=== PATIENT | male | born 1960 | race Caucasian/White ===

== ENCOUNTER 2016-08-20 16:40 | Inpatient (IN) | payer SELFPAY ==
[~2016-08-20] VITALS: Ht 179.1 cm; Wt 149.5 kg
--- NOTE | ~2016-08-20 | ENPV ---
Vascular Lower Extremities DVT Study Procedure Demographics Patient Name WILLIAM LOPEZ Date of Study 08/23/2016 Patient Number [id number] Gender Male Date of 1960 Age 55 Visit Number [id number] Height 70 Accession Number [id number] Weight 326.29 Referring Manuel Peters Interpreting Amando Gaviria MD Physician Physician Physician Ordering Manuel Human Performance Consultant Physician Lorraine GLORIA Oyster Worker Lonnie Torres Conclusions Summary No evidence of deep vein thrombosis or superficial thrombophlebitis in the lower extremities bilaterally . Patient has amputation of lower right extremity. Left calf veins technically difficult to image. IMPRESSION NEGATIVE FOR DVT Procedure Type of Study: Veins:Lower Extremities DVT Study, Venous Duplex Lower Extremity Bilateral. Indications for Study:Swelling of Limb. Patient Status:Routine. Study Location:Inpatient Portable. Technical Quality:Adequate visualization. Risk Factors - The patient's risk factor(s) include: insulin-treated diabetes mellitus, dyslipidemia, obesity and treated arterial hypertension. - The patient has a former tobacco history. Velocities are measured in cm/s ; Diameters are measured in cm Right Lower Extremities DVT Study Measurements Right 2D and Doppler Measurements + + + + +------+------+ + !Location !Visualized!Compressibility!Thrombosis!Signal!Reflux!Reflux ! ! ! ! ! ! ! !(sec) ! + + + + +------+------+ + !GSV Thigh !Yes !Yes !None !Phasic! ! ! + + + + +------+------+ + !Common !Yes !Yes !None !Phasic! ! ! !Femoral ! ! ! ! ! ! ! + + + + +------+------+ + !Prox !Yes !Yes !None !Phasic! ! ! !Femoral ! ! ! ! ! ! ! + + + + +------+------+ + !Mid Femoral!Yes !Yes !None !Phasic! ! ! + + + + +------+------+ + Left Lower Extremities DVT Study Measurements Left 2D and Doppler Measurements + + + + +------+------+ + !Location !Visualized!Compressibility!Thrombosis!Signal!Reflux!Reflux ! ! ! ! ! ! ! !(sec) ! + + + + +------+------+ + !GSV Thigh !Yes !Yes !None !Phasic! ! ! + + + + +------+------+ + !Common !Yes !Yes !None !Phasic! ! ! !Femoral ! ! ! ! ! ! ! + + + + +------+------+ + !Prox !Yes !Yes !None !Phasic! ! ! !Femoral ! ! ! ! ! ! ! + + + + +------+------+ + !Mid Femoral!Yes !Yes !None !Phasic! ! ! + + + + +------+------+ + !Dist !Yes !Yes !None !Phasic! ! ! !Femoral ! ! ! ! ! ! ! + + + + +------+------+ + !Popliteal !Yes !Yes !None !Phasic! ! ! + + + + +------+------+ + !PTV !Yes ! !None !Phasic! ! ! + + + + +------+------+ + !Peroneal !Yes !Yes !None !Phasic! ! ! + + + + +------+------+ + Signature dtt: Colin Goel dtd: 08/23/16 1006 Physician Self Edit
--- NOTE | ~2016-08-20 | PUL ---
PATIENT'S NAME: WILLIAM LOPEZ [facility] AGE: 55 Y [address] ROOM: [address] [address] LOCATION: GPCU ADMIT DATE: 08/20/2016 Pulmonary DISCHARGE DATE: 08/23/2016 FAMILY PHYSICIAN: Sergio Pritchard MD ATTENDING PHYSICIAN: Sergio Pritchard NAME OF PROCEDURE: Overnight Pulse Oximetry DATE OF PROCEDURE: August 22 to August 23, 2016 REASON FOR EXAM: Nocturnal hypoxemia RESULTS: The test was performed on room air. The recording time and total valid sampling time were 6 hours, 16 minutes and 44 seconds. The highest pulse was 84, lowest pulse was 57, with a mean pulse of 71. The highest SpO2 was 95%, lowest SpO2 was 64%, with a mean SpO2 of 88.4%. The patient spent 2 hours, 14 minutes, and 20 seconds with SpO2 less than 89% of the total sleep time, representing 35.7% of the total sleep time. The desaturation event index was elevated at 18.6. PHYSICIAN INTERPRETATION: The patient has evidence of significant nocturnal hypoxia and would qualify for supplemental oxygen as per Medicare criteria. However because of his significant nocturnal hypoxia with an elevated desaturation event index a sleep study is recommended at this time. MD MIGUEL SHETH/larry /[id number] dtt: 08/25/16 1542 , HAMLET GUERRERO dtd: 08/25/16 1203
--- NOTE | ~2016-08-20 | DS ---
PATIENT'S NAME: WILLIAM LOPEZ [facility] AGE: 55 Y [address] ROOM: [address] [place], [place] [address] LOCATION: GPCU ADMIT DATE: 08/20/2016 Discharge Summary DISCHARGE DATE: 08/23/2016 FAMILY PHYSICIAN: Lizeth Pritchard MD ATTENDING PHYSICIAN: Lizeth Pritchard FINAL DIAGNOSES: 1. Chest pain. 2. Chronic obstructive pulmonary disease. 3. Left ventricular hypertrophy with EF of 60%. 4. Type 2 diabetes mellitus, insulin dependent. 5. Morbid obesity. 6. Hypertension with chronic kidney disease stage 3. 7. Chronic kidney disease stage 3. 8. Coronary artery disease. 9. Hyperlipidemia. 10. Obstructive sleep apnea. REASON FOR ADMIT: This 55-year-old male presented to the clinic on the date of admit with complaints of chest pain. He was found to have an elevated troponin and was subsequently admitted. Please see the dictated H and P for full details. HOSPITAL COURSE: The patient was subsequently ruled out. He did have elevated enzymes at the hospital as well. He ended up undergoing a stress test, though that was completely normal with great squeezes. EF was 60% with some LVH noted on his echo. Dr. Patel did not feel like heart catheterization is mandated. He still was having some issues with hypoxia, so we ended up doing a V/Q scan, which was negative for any pulmonary embolic disease. We did that because of D-dimer. He subsequently was able to titrate off oxygen. We did do an overnight trend oximetry, which showed very poor control of his hypoxia. He spent 52% on the night with O2 saturation above 90%, 44% between 80 and 90, 3.9% between 70 and 80, and 0.3% between 60 and 70. It was felt that he needed another sleep study to further titrate his oxygen levels. We will work on getting that set up as well. At this point though, he has been deemed ready for discharge. He is clinically stable. DISCHARGE MEDICATIONS: 1. Aspirin 325 one a day. 2. Lipitor 10 mg one p.o. q.h.s. 3. Calcium plus D one a day. 4. Carvedilol 25 mg b.i.d. 5. Insulin 15 units in the morning, 20 units at noon, and 30 units at nighttime. He is on 115 units of insulin once a day with Lantus. 6. Levothyroxine 0.175 daily. PATIENT'S NAME: WILLIAM LOPEZ [facility] AGE: 55 Y [address] ROOM: [address] [place], [place] [address] [facility] ADMIT DATE: 08/20/2016 Discharge Summary DISCHARGE DATE: 08/23/2016 FAMILY PHYSICIAN: Lizeth Pritchard MD ATTENDING PHYSICIAN: Lizeth Pritchard 7. Benazepril 40 mg daily. 8. Metformin 1000 mg b.i.d. 9. Multivitamin one a day. 10. Omeprazole 20 mg daily. 11. Amaryl 4 mg b.i.d. 12. Tylenol p.r.n. 13. Amlodipine 5 mg q.h.s. FOLLOWUP: He will follow up with Dr. Patel in 1 week and with myself in 2 weeks. He voiced understanding of that plan. LIZETH PRITCHARD MD TAB/modl /[id number] d: 08/24/16 0253 t: 09/02/16 1639, DISCHARGE SUMMARY
--- NOTE | ~2016-08-20 | CON ---
PATIENT'S NAME: WILLIAM LOPEZ [facility] AGE: 55 Y [address] ROOM: [address] [place], [place] [address] LOCATION: GPCU ADMIT DATE: 08/20/2016 Consultation DISCHARGE DATE: FAMILY PHYSICIAN: Sergio Pritchard MD ATTENDING PHYSICIAN: Sergio Pritchard REFERRING PHYSICIAN: Lorraine Jackson MD HISTORY OF PRESENT ILLNESS: Dear Dr. Pritchard: Thank you for asking me to see Mr. Lopez, who is a 55-year-old male patient, hospitalized with chest pains and shortness of breath of about 7 days' duration. He is currently pain free, and he apparently has had elevated troponins consistent with a oxs-ZB-olwwfmr elevation AL, which is the main reason for me seeing him. The patient has a history of coronary artery disease, and had apparently a stent placed in 2005. He had been doing okay up until about seven days ago. Normally, he ambulates with a prosthesis on his right lower extremity, which he wears for a right below-knee amputation. He wears the usual shoes on his legs, even though he has had some of the toes amputated. He is not on any structured exercise program. He does get around at his own pace at work and home, which is about the most he does. Generally, he has not had any chest discomfort or pressure up until about 7 days ago when he noticed about five minutes' worth of significant chest pressure, which he calls 4 on a scale of 1 to 10. This occurred when he walked to his car in the morning. It resolved and he was quite short of breath. Since then, he has been more short of breath than usual. Compared to about a month ago, he is clearly at least 50% worse as far as the breathing is concerned. Since that initial episode of chest pressure, he has had it few other times lasting about two to three minutes each time. He has been a functional class 3, with no paroxysmal nocturnal dyspnea or orthopnea. After he started having this problem, he started using his CPAP, which seemed to be helping him according to the patient. He denies any lightheadedness, syncope, presyncope, or dizziness. He has some palpitations and some ankle swelling. The patient has history of type 2 diabetes with some possible nephropathy, retinopathy, peripheral vascular disease, and right below-knee amputation and some toes amputated on the left side, and possibly nephropathy as well. He has CKD. He has morbid obesity. He quit smoking 25 years ago. There is also history of hypertension, type 2 diabetes, and elevated cholesterol. There is significant family history of premature coronary artery disease in his Dad, who may have had his first coronary event in his 50s. He denies AL or angina or nitroglycerin use. There is no history of rheumatic fever, heart murmur, heart failure, dilated or enlarged heart, or any diagnosed cardiac arrhythmias. PATIENT'S NAME: WILLIAM LOPEZ [facility] AGE: 55 Y [address] ROOM: [place] [address] [facility] ADMIT DATE: 08/20/2016 Consultation DISCHARGE DATE: FAMILY PHYSICIAN: Sergio Pritchard MD ATTENDING PHYSICIAN: Sergio Pritchard MEDICATIONS: His current list of medications are 1. Atorvastatin 10 mg a day. 2. Benazepril 40 mg once a day. 3. Calcium and vitamin. 4. Carvedilol 25 mg twice a day. 5. Farxiga 5 mg once a day. 6. Glimepiride 4 mg two times a day. 7. Humalog insulin. 8. Lantus insulin. 9. Metformin 1 g p.o. twice a day. 10. Multivitamin. 11. Omeprazole 10 mg a day. 12. Synthroid 175 mcg a day. ALLERGIES: NO KNOWN DRUG ALLERGIES. PAST MEDICAL HISTORY: 1. Amputation. 2. Cataract surgery. 3. Foot surgery. 4. History of cyst removed from his stomach. 5. History of diabetic foot ulcer. 6. CKD. 7. Morbid obesity. 8. Microalbuminemia. 9. Non-compliance with medications. 10. History of osteomyelitis in lower leg on the right, status post amputation. 11. Sleep apnea. SOCIAL HISTORY: The patient is single. He denies abusing alcohol or recreational drugs. His appetite has been stable. Weight is stable. Sleep is poor. FAMILY HISTORY: Positive for premature coronary artery disease in his Dad. REVIEW OF SYSTEMS: A 12-point review of systems revealed the following positives. 1. Fatigue. 2. Migraines. 3. Corrective lenses. PATIENT'S NAME: WILLIAM LOPEZ [facility] AGE: 55 Y [address] ROOM: [address] [address] LOCATION: GPCU ADMIT DATE: 08/20/2016 Consultation DISCHARGE DATE: FAMILY PHYSICIAN: Sergio Pritchard MD ATTENDING PHYSICIAN: Sergio Pritchard 4. Diabetic retinopathy. 5. Hypothyroidism. 6. History of heartburns. 7. History of polyps in his colon. 8. DJD. 9. The patient is a vasculopath. 10. CKD. 11. Below-knee amputation on the right. 12. Anxiety and depression. PHYSICAL EXAMINATION: VITAL SIGNS: On examination, his blood pressure was 170/80, heart rate is in the 60s and 70s and regular, respirations are 18, and afebrile. HEENT: Normal. NECK: Supple with no JVD, thyromegaly, lymphadenopathy, or carotid bruit. CARDIAC: PMI is not well located. First and second heart sounds are regular. There are no added sounds or murmurs. CHEST: Clear to auscultation. EXTREMITIES: Revealed no edema. He is again a right below-knee amputee. NEUROLOGICAL: Central nervous system overall appeared to be intact. ASSESSMENT AND PLAN: The patient seemed to have acute ischemic syndrome. We will rule him out for myocardial infarction, and then do a catheterization if he rules in and a stress test if he rules out. In the meantime, I would also get an echocardiogram as well. Again, I appreciate this opportunity to participate in the care of Mr. Lopez. MD FRANDY CRUZ/pollo /[id number] d: 08/21/16 0208 t: 08/24/16 1453, CONSULTATION REPORT
--- NOTE | ~2016-08-20 | ECHO ---
Transthoracic Echocardiography Report (TTE) Demographics Patient Name WILLIAM LOPEZ Date of Study 08/22/2016 Patient Number [id number] Visit Number [id number] Date of 1960 Room Number G6337 Gender Male Number Age 55 year(s) Referring Manuel Peters Practicing Dermatologist Mike Nick RVT, Physician MD JOSE Steiner MD Physician Interpreting Manuel Peters Roll Shop Supervisor Physician Supervising Ordering Manuel Peters MD/MLP Physician Nurse Stress Benefits Administrator Conclusions Contractility Score Summary Normal Left Ventricular contractility was noted. Summary Technically difficult exam. Definity used to better delineate endocardial borders. The estimated left ventricular ejection fraction is 60% with normal WM.Moderate concentric left ventricular hypertrophy except the septum reveals severe RUSTY without evidence of outflow tract obstruction.Normal LV internal dimensions. Mildly dilated right ventricle with normal function. The right atrium is mildly dilated. Dilated IVC with poor inspiratory collapse consistent with elevated RA pressure. Procedure Type of Study TTE procedure:2D Echocardiogram. Procedure Date Date: 08/22/2016 Start: 09:38 AM Study Location: Inpatient Portable Technical Quality: Fair due to body habitus. Indications:Chest pain. Appropriate Use Criteria: 8 Patient Status: Routine Contrast Medium: Definity. Amount - 3 ml Rhythm: NSR HR: 72 bpm BP: 140/65 mmHg M-Mode/2D Measurements LV Diastolic Dimension: 5.17 cm LV Systolic Dimension: 3.25 cm LV Septum Diastolic: 1.95 cm LV PW Diastolic: 1.49 cm AO Root Dimension: 3.4 cm Cardiac Output: 5.64 l/min AV Cusp Separation: 2.2 cm RV Diastolic Dimension: 3.82 cm LA volume: 44 ml LVOT: 2.2 cm RV Base: 3.6 cm LVOT VTI: 20.6 cm RV Mid: 4.18 cm LV Stroke volume: 78.27 ml TAPSE: 2.25 cm TDI-S': 11.7 cm/s Doppler Measurements AV Peak Velocity: 1.06 m/s MV Peak E-Wave: 1.37 m/s AV Peak Gradient: 4.49 mmHg MV Peak A-Wave: 0.98 m/s AV Mean Gradient: 3 mmHg MV E/A Ratio: 1.4 LVOT Peak Velocity: 0.8 m/s MV P1/2t: 63 msec TR Gradient:17.81 mmHg PV Peak Velocity: 1.22 m/s Estimated RAP:5 mmHg PV Peak Gradient: 5.95 mmHg Estimated RVSP: 23 mmHg Estimated PASP: 22.81 mmHg E' Septal Velocity: 0.06 m/s A' Septal Velocity: 0.11 m/s E' Lateral Velocity: 0.07 m/s A' Lateral Velocity: 0.13 m/s Findings Left Ventricle Moderate concentric left ventricular hypertrophy and severe RUSTY with normal EF,WM and internal dimension. Right Ventricle Mildly dilated right ventricle with normal function. Left Atrium Normal left atrial size. There is no evidence of patent foramen ovale or atrial septal defect by color Doppler. Right Atrium The right atrium is mildly dilated. Dilated IVC with poor inspiratory collapse consistent with elevated RA pressure. Mitral Valve Normal mitral valve structure and function. Aortic Valve Normal aortic valve structure and function. Tricuspid Valve Normal tricuspid valve structure and function. Trivial tricuspid regurgitation by color Doppler. Pulmonic Valve Normal pulmonic valve structure and function. Pericardial Effusion No evidence of pericardial effusion. Miscellaneous Visualized portions of the aortic root and ascending aorta appear normal in size. Pleural Effusion No evidence of pleural effusion. Contractility Score LV regional wall motion:(0-Non visualized 1-Normal 2-Hypokinesis 3-Akinesis 4-Dyskinesis 5-Aneurysm) Signature dtt: Lorraine Jackson dtd: 08/22/16 0938 Physician Self Edit
--- NOTE | ~2016-08-20 | ESTC ---
Cardiac Perfusion Imaging Demographics Patient Name JOHN Vargas Gender Male Patient Number [id number] Race Visit Number [id number] Ethnicity Corporate ID Room Number G6337 Accession Number [id number] Height 70 inches Date of 1960 Weight 326.3 pounds Interpreting Manuel Peters Date of study 08/21/2016 Physician Supervising /GILBERTP Manuel AMEZQUITA Technologist Kalee Coats MD Ordering Physician Francheska Steiner MD Stress Matt Matt educational technician RVT Stress ECG Reading Manuel Peters Nurse Taylor Nuno Physician RN The procedure was explained in detail to the patient. Risks, complications and alternative treatments were reviewed. Written consent was obtained. Medications Reviewed with Patient prior to Procedure. Procedure Procedure Type: Nuclear Stress Test:Pharmacological, Cardiolite Stress Test Procedure Start time: 08/21/2016 10:05 Indications: Chest pain and Shortness of breath. Risk Factors The patient risk factors include:prior PCI;peripheral arterial disease, obesity, former tobacco use, treated hypercholesterolemia, treated hypertension, family history of premature CAD, insulin treated diabetes mellitus, dyslipidemia and prior heart failure . Conclusions Summary No TID. Enlarged LV. No perfusion abnormalities. Normal EF and WM. Stress Protocols Resting ECG RSR. Pre-stress physical exam: Un changed. Predicted HR: 166 bpm ECG Findings No ECG changes suggestive of ischemia. Arrhythmias No rhythm abnormality. Symptoms SOB. Nausea. Stress Interpretation Lexiscan cardiolite study. SOB and nausea. Normal HR response. Hypertensive BP response. No EKG changes of ischemia. No arrythmias. Imaging Results Applied corrections - Motion correction applied High risk findings Summed scores - Summed stress score: 3 - Summed rest score: 8 - Summed difference score: -5 Stress ejection Ejection fraction:62 % EDV :225 ml ESV :85 ml Stroke volume :140 ml LV mass :225 gr LV size:Enlarged LV Normal LV function Imaging Protocols Rest Stress Isotope:Tc99m Sestamibi IV Isotope: Tc99m Sestamibi IV Isotope dose:16.35 mCi Isotope dose:49.36 mCi Date:08/21/2016 08:55 Date:08/28/2016 10:47 Technique: SPECT Technique: Gated Supine SPECT Supine IV remains in place after procedure. Scan Time:45-60 minutes post injection Procedure Medications - Regadenoson (Lexiscan) 0.4 mg IV over 10-15 sec. I.V. 0.4 mg. Medical History Admission Data Admission date: 08/20/2016 Admission Time: 16:40 Hospital Status: Inpatient. Signatures dtt: Lorraine Jackson dtd: 08/21/16 1005 Physician Self Edit
[2016-08-20] MEDS ORDERED: AMARYL4 MG PO (17:31)
[2016-08-20] MEDS ORDERED: LIPITOR40 MG PO (17:31)
[2016-08-20] MEDS ORDERED: GLUCOPHAGE1000 MG PO (17:31)
[2016-08-20] MEDS ORDERED: BENAZEPRIL HCL40 MG PO (17:31)
[2016-08-20] MEDS ORDERED: LANTUS (IN100 UNIT/M SUB-Q (17:32)
[2016-08-20] MEDS ORDERED: LEVOTHROID(SY175 MCG PO (17:32)
[2016-08-20] MEDS ORDERED: HUMALOG100 UNIT/1 SUB-Q ×3 (17:33→17:34)
[2016-08-20] MEDS ORDERED: THERAGRAN-M1 TAB PO (17:34)
[2016-08-20] MEDS ORDERED: ASPIRIN325 MG PO (17:34)
[2016-08-20] MEDS ORDERED: ADVIL200 MG PO (17:35)
[2016-08-20] MEDS ORDERED: CALCIUM + D3 E1 EACH PO (17:35)
[2016-08-20] MEDS ORDERED: TYLENOL EXTRA500 MG PO (17:35)
[2016-08-20] MEDS ORDERED: PRILOSEC20 MG PO (17:41)
[2016-08-20 18:16] LABS: BILIRUBIN URINE NEGATIVE (NEGATIVE); BLOOD URINE 25 /UL (NEGATIVE); COLOR URINE YELLOW (YELLOW); GLUCOSE URINE NEGATIVE (NEGATIVE); KETONE URINE NEGATIVE (NEGATIVE); LEUKOCYTES URINE 500 /UL (NEGATIVE); NITRITE URINE NEGATIVE (NEGATIVE); PROTEIN URINE 500 mg/dL (NEGATIVE); SPEC GRAVITY URINE 1.015 (1.003-1.035); TURBIDITY URINE 2+ (CLEAR); UROBILINOGEN URINE NORMAL (NORMAL)
--- NOTE | 2016-08-20 18:22 | NUR ---
Patient went to [facility] today reporting that he has had chest discomfort and dyspnea, which started 6 days ago. It was noted his troponin was elevated in the clinic. Patient direct admit to PCU at 1655. Vital signs: BP 178/84, HR 77, O2 saturation 88% on room air, afebrile, RR 22, and denies pain (including chest pain). Applied 2L of oxygen per ACS protocol. Lung sounds clear/diminished. Patient states he still feels short of breath, although no chest pain present. States the last time he felt lightheaded/dizzy was on Tuesday, but never had a syncopal episode. Bowel sounds present with last bowel movement on admission. Urine cloudy and yellow. UA sent. Consulted cardiology and started on ACS protocol. Blood sugar 84 on admit. Patient has known diabetes. Other medical history includes: Right BKA with prothesis, PVD, HTN, prolonged QT, Stents, breathing difficulty, CPAP at night, gastritis, GERD, ulcers, renal disease, ETOH, depression, anemia, hypothyriodism. Plan to monitor cardiac enzymes, EKG, and cardiology to see. Estrella CARRINGTON 08/20/16
[2016-08-20 18:25] LABS: WBC URINE PACKED FIELD #/HPF (NEGATIVE)
[2016-08-20 18:26] LABS: BACTERIA URINE MANY (NEGATIVE)
[2016-08-20 19:13] LABS: BASOPHIL % 0.2 %; EOSINOPHIL # 0.3 K/uL (0.0-0.5); HEMATOCRIT 35.9 % (37.0-53.0); HEMOGLOBIN 10.7 g/dL (12.0-17.0); IMMATURE GRANULOCYTE % 0.5 %; LYMPHOCYTE # 1.3 K/uL (0.8-4.0); LYMPHOCYTE % 14.8 %; MCH 24.7 pg (27.0-34.0); MCHC 29.8 gm/dL (32.0-36.5); MCV 82.9 fl (83.0-98.0); MONOCYTE # 0.7 K/uL (0.0-1.0); MPV 8.2 fl (9.4-12.4); NEUTROPHIL # (ANC) 6.2 K/uL (1.4-9.0); NEUTROPHIL % 73.5 %; NRBC % 0 /100WBC (0-0.00); PLATELET COUNT 192 K/uL (150-450); RBC 4.33 M/uL (4.00-6.00); RDW-CV 16.1 % (11.9-14.6); WBC 8.4 K/uL (4.0-11.0)
[2016-08-20 19:22] LABS: INR - (THERAPEUTIC) 1.01 (0.92-1.07); PROTIME 10.6 SECONDS (9.8-11.4); PTT 28 SECONDS (25-32)
[2016-08-20 19:33] LABS: ANION GAP 11.3 (10.0-19.0); CALCIUM 8.3 mg/dL (8.5-10.5); CREATININE 1.7 mg/dL (0.6-1.3); MAGNESIUM 1.6 mg/dL (1.8-2.6); POTASSIUM 5.3 mMol/L (3.7-5.1); TOTAL BILIRUBIN 0.5 mg/dL (0.0-1.5)
--- NOTE | 2016-08-21 05:32 | NUR ---
Significant Event: A/0 X 3. SBP'S HAVE BEEN IN THE 170'S, HR 70'S, AFEBRILE. HEPARIN AT 1000 UNITS/HR, NEXT PTT-HP 0530. LAST TROPONIN 0.41, ALL OTHER CARDIAC ENZYMES NEGATIVE. 02 AT 3L, HAS HOME CPAP, HAD TO RUN 5L BLEED INTO CPAP TO MAINTAIN 02, HE SLEEPS ON HIS SIDE. SOON HE TURNS TO HIS BACK OR WAKES 02 JUMPS UP QUICKLY. NPO SINCE MIDNIGHT FOR KAROLINE THIS AM. Follow up:
[2016-08-21] MEDS ORDERED: COREG25 MG PO (06:46)
[2016-08-21 14:04] LABS: CPK 73 IU/L (35-332)
--- NOTE | 2016-08-21 16:16 | NUR ---
Significant Event: Patient A/O x 3. Up with 1A. VSS on 3L O2. Unable to wean patient to room air (normally on room air during the day), but has been sleeping frequently throughout the day. Lexiscan this A.M. Results still pending. Denies chest pain or shortness of breath. L)wrist PIV with heparin infusing. 2L NS complete. Denies pain throughout the day. ACHS accu checks without sliding scale. Gets his home dose of schedule insulin. Follow up: Continue as per plan of care. Attempt to wean O2. Awaiting lexiscan results.
--- NOTE | 2016-08-22 04:38 | NUR ---
Significant Event:A&O. REMAINS ON 3L NC AND 3L W/OWN CPAP AT NIGHT. DENIES PAIN.HEPARIN GTT PER ACS PROTOCOL. DANGLED AT BEDSIDE. BP HIGH 176/74. Follow up: CONT TO MONITOR, AM LABS
[2016-08-22 06:49] LABS: CPK 54 IU/L (35-332)
--- NOTE | 2016-08-22 17:13 | NUR ---
Significant Events: Patient is A&Ox3 and pleasant. Patient is a stand-by assist with a cane and prosthesis to the right lower leg. Vital signs: HR 60-80's, SBP 120-190's. Patient is on 2L nasal cannula with clear lung sounds. Patient is up to commode with one BM today and 2049 in urine. Patient has scratches/redness to left lower abdomen, redness to right inner thigh, and venous staining/peeling to left lower leg. IV in right wrist with heparin running at 1900. Magnesium also started today and is running at 100 mls. Patient had chest x-ray this AM and is to have a duplex scan tomorrow. Continue per plan of care.
[2016-08-23 04:36] LABS: BASOPHIL % 0.3 %; EOSINOPHIL # 0.5 K/uL (0.0-0.5); EOSINOPHIL % 4.3 %; HEMATOCRIT 37.9 % (37.0-53.0); HEMOGLOBIN 11.5 g/dL (12.0-17.0); IMMATURE GRANULOCYTE # 0.1 K/uL (0.0-0.3); IMMATURE GRANULOCYTE % 0.6 %; LYMPHOCYTE # 1.4 K/uL (0.8-4.0); LYMPHOCYTE % 13.5 %; MCHC 30.3 gm/dL (32.0-36.5); MCV 82.4 fl (83.0-98.0); MONOCYTE % 9.4 %; MPV 8.4 fl (9.4-12.4); NEUTROPHIL # (ANC) 7.5 K/uL (1.4-9.0); NEUTROPHIL % 71.9 %; NRBC % 0 /100WBC (0-0.00); PLATELET COUNT 220 K/uL (150-450); RDW-CV 16.2 % (11.9-14.6); WBC 10.5 K/uL (4.0-11.0)
--- NOTE | 2016-08-23 04:55 | NUR ---
Significant Event: A&O. Weaned oxygen to 1L NC while awake. trend ox per RT this shift. Heparin gtt stopped per , VQ scan negative. 20mg IV lasix given once. Pt voids per urinal, no BM. Follow up:iftikhar LE duplex? cont w/plan of care
[2016-08-23 05:01] LABS: CALCIUM 8.5 mg/dL (8.5-10.5); CREATININE 1.5 mg/dL (0.6-1.3)
[2016-08-23 05:02] LABS: ANION GAP 11.8 (10.0-19.0); POTASSIUM 4.8 mMol/L (3.7-5.1)
--- NOTE | 2016-08-23 16:56 | NUR ---
Introduced self and care management services to patient. Lives in [place] with roommate. Gets to go home this evening, will call roommate for ride. Denies concerns about going home, denies needs. Does not have health insurance, does have financial assistance application, instructed him to fill that out and send it in to see what assistance he qualifies for and I called a referral to Madelin with [employer] to see if will qualify for Medicaid assistance.
[2016-08-23] MEDS ORDERED: NORVASC10 MG PO (17:29)
--- NOTE | 2016-08-23 17:48 | NUR ---
PATIENT HAS BEEN UP PERIODICALLY THROUGHOUT THE DAY ON HIS OWN TO GO TO THE BATHROOM. PATIENT VOIDED FOUR TIMES TODAY AND HAD NO BM. PATIENT TOOK A SHOWER THIS MORNING. PATIENT WAS NOT TREATED WITH INSULIN AT ALL TODAY, BS WAS WITHIN NORMAL RANGE PER MILD SLIDING SCALE. PATIENT HAD HIGH BP AT 1100 ASSESSMENT, 223/89, SO WE TREATED WITH NORVASC x1. PATIENT HAS IV IN LEFT HAND AND HAS HAD NO COMPLICATIONS WITH THAT. PATIENT STATED ONCE TODAY THAT HE FELT DIZZY WHEN HE STOOD UP TO GO TO THE BATHROOM. PATIENT IS CURRENTLY RESTING IN BED.
--- NOTE | 2016-08-23 18:47 | NUR ---
PATIENT GIVEN WRITTEN DISMISSAL INSTRUCTIONS INCLUDING NEW HOME MEDICATION LIST WITH INFORMATION ON NEW MEDS, PRESCRIPTIONS, FOLLOW-UP APPOINTMENTS WITH CARDIOLOGY, PCP, AND SLEEP STUDY SCHEDULED FOR September. DIET AND ACTIVITY RESTRICTIONS ALSO DISCUSED WITH RN. PATIENT STATES UNDERSTANDING OF INFORMATION DISCUSSED WITH RN. PIV REMOVED FROM L) WRIST WITH GAUZE AND COBAN APPLIED. TELEMETRY DC'D AND PATIENT DRESSED IN OWN CLOTHING. TAKEN TO FRONT OF [facility] VIA WHEELCHAIR AT 1845 ACCOMPANIED BY RN, ROOMMATE, AND BELONGINGS.
== END 2016-08-23 18:45 | disposition disaster alternative care site (69) | DRG 303 ==
LOC: GPCU 16:40
PROVIDERS: Internal Medicine Interventional Cardiology; ADMIT Family Medicine
DX: I25.110 Atherosclerotic heart disease of native coronary artery with unstable angina pectoris (principal); E11.22 Type 2 diabetes mellitus with diabetic chronic kidney disease; Z68.41 Body mass index [BMI] 40.0-44.9, adult; N18.3 Chronic kidney disease, stage 3 (moderate); M86.8X6 Other osteomyelitis, lower leg; E66.01 Morbid (severe) obesity due to excess calories; I25.10 Atherosclerotic heart disease of native coronary artery without angina pectoris; E78.5 Hyperlipidemia, unspecified; G47.33 Obstructive sleep apnea (adult) (pediatric); J44.9 Chronic obstructive pulmonary disease, unspecified; I12.9 Hypertensive chronic kidney disease with stage 1 through stage 4 chronic kidney disease, or unspecified chronic kidney disease; Z91.19 Patient's noncompliance with other medical treatment and regimen; Z79.4 Long term (current) use of insulin; E03.9 Hypothyroidism, unspecified; Z89.511 Acquired absence of right leg below knee; F41.9 Anxiety disorder, unspecified; F32.9 Major depressive disorder, single episode, unspecified; Z86.010 Personal history of colon polyps
CPT/HCPCS: A9500; A9539; A9540; C8929; J0280; J1644; J1940; J2785; J3475; J7030; J7050; Q9957

== ENCOUNTER 2016-10-05 10:43 | Inpatient (IN) | payer SELFPAY ==
[~2016-10-05] VITALS: Ht 179.1 cm; Wt 148.1 kg
--- NOTE | ~2016-10-05 | CON ---
PATIENT'S NAME: WILLIAM LOPEZ [facility] AGE: 55 Y [address] ROOM: [id number] [place], [place] [address] LOCATION: GPCU ADMIT DATE: 10/05/2016 Consultation DISCHARGE DATE: FAMILY PHYSICIAN: Sergio Pritchard MD ATTENDING PHYSICIAN: Cheryl Gill DATE OF CONSULTATION: 10/06/2016 REFERRING PHYSICIAN: Lorraine Jackson MD Patient of Dr. Pritchard. HISTORY OF PRESENT ILLNESS: Dear Dr. Pritchard: Thank you for asking me to see Mr. Lopez, who is a 55-year-old male patient, who was hospitalized in July with chest pain and shortness of breath. He was found to have a normal ejection fraction with moderate concentric left ventricular hypertrophy except for the septum, which was severely hypotrophic without evidence of outflow tract obstruction. The LV internal dimension was normal. There was mildly dilated right ventricle and right atrium and evidence of increased right atrial pressures by echocardiogram. His cardiac stress test was essentially consistent with normal ejection fraction and wall motion with no perfusion abnormalities and enlarged left ventricle. There was no TID. He was discharged home on his home medication to be followed up as an outpatient. At that time, I did not think catheterization is necessary. Pulmonary embolic disease was excluded using a V/Q scan. His other comorbid conditions include morbid obesity, hypertension, CKD stage 3, hyperlipidemia, type 2 diabetes, obstructive sleep apnea, COPD, coronary artery disease status post PCI in 2005, recent history of a dip-KP-vkqaaej elevation [place] in July. The patient generally ambulates with prosthesis with right below-knee amputation. For the past 3 days, he has gotten progressively worse shortness of breath, which got a lot worse yesterday, and he decided to come in. He has not had any chest pain. Since he came in, he has had diuretics which seemed to improved his symptoms considerably. He has been in functional class III lately. There is no paroxysmal nocturnal dyspnea or orthopnea. There is no history of lightheadedness, syncope, presyncope, dizziness, or palpitation. He does have some ankle swelling. There is no recent change in his rhythm. A repeat V/Q scan has been negative. He did catch a cold and sinus drainage about 4 days ago. He also admits to increasing his salt intake lately and his hemoglobin is down from 11.5 to about 9.9 this time. PATIENT'S NAME: WILLIAM LOPEZ [facility] AGE: 55 Y [address] ROOM: [place] [address] LOCATION: GPCU ADMIT DATE: 10/05/2016 Consultation DISCHARGE DATE: FAMILY PHYSICIAN: Sergio Pritchard MD ATTENDING PHYSICIAN: Cheryl Gill He does have a history of coronary artery disease in his family with his dad having his first coronary event in his 50s and has a prior history of smoking, which he quit 25 years ago. He has peripheral vascular disease and had below- knee amputation on the right side. As far as the diabetes concerned, he has nephropathy and retinopathy as well. He has no history of rheumatic fever or heart murmur. However, he has history of congestive heart failure, dilated heart, but does not have any arrhythmias. MEDICATIONS: 1. Lipitor 40 mg a day. 2. Norvasc 10 mg a day. 3. Glimepiride 4 mg twice a day. 4. Aspirin 325 mg a day. 5. Carvedilol 25 b.i.d. 6. Multivitamin once a day. 7. Magnesium daily. 8. Prilosec 20 mg a day. 9. Lantus insulin. 10. Humalog insulin. ALLERGIES: MORPHINE. PAST MEDICAL HISTORY: 1. History of right below-knee amputation. 2. Cataract surgery. 3. Foot surgery. 4. Cyst removed from his stomach. 5. Diabetic foot ulcer. 6. Morbid obesity. 7. CKD. 8. Microalbuminuria. 9. Noncompliance with medications. 10. History of osteomyelitis before his amputation. 11. Sleep apnea. SOCIAL HISTORY: The patient is single. He denies abusing alcohol or recreational drugs. His appetite has been stable. Weight is stable. Sleep is poor. FAMILY HISTORY: Positive for premature coronary artery disease in his dad. REVIEW OF SYSTEMS: PATIENT'S NAME: WILLIAM LOPEZ [facility] AGE: 55 Y [address] ROOM: [place] [address] LOCATION: GPCU ADMIT DATE: 10/05/2016 Consultation DISCHARGE DATE: FAMILY PHYSICIAN: Sergio Pritchard MD ATTENDING PHYSICIAN: Bridget,Cheryl 12-point review of systems reveal: 1. Migraine headaches. 2. Hypothyroidism. 3. Heartburn. 4. History of polyps in his colon. 5. DJD. 6. Anxiety and depression. PHYSICAL EXAMINATION: VITAL SIGNS: On examination, his blood pressure is 151/60, heart rate is 70s and regular, respirations 20. Afebrile. Oxygen saturation is 93% on oxygen. HEENT: Normal. NECK: Supple with no JVD, thyromegaly, lymphadenopathy, or carotid bruit. CARDIAC: PMI is not well located. First and second heart sounds are distant. There are no added sounds or murmurs. CHEST: Clear to auscultation. ABDOMEN: Soft and obese. EXTREMITIES: Reveal trace to 1+ edema. CENTRAL NERVOUS SYSTEM: Overall intact. LABORATORY DATA: His troponins are negative so far. ASSESSMENT: A 55-year-old, male patient with hypertrophic cardiomyopathy with a normal ejection fraction with some asymmetric hypertrophy as well, who has history of congestive heart failure and history of coronary artery disease status post stent in 2006. His last stress test was negative. He has no significant valvular abnormalities He presents again with congestive heart failure symptoms. The precipitating factors in his case appears at least at this time to be noncompliance with salt restriction, hemoglobin dropped from 11.5-9.9 and sinus drainage and cold. RECOMMENDATION: We will check his Hemoccult, all his stools, and try and treat him with more diuretics until he is really free of any significant shortness of breath. I wonder if his kidney function improve, cardiac MRI study and/or left heart catheterization study may be helpful. Again, I appreciate this opportunity to participate in the care of Mr. Lopez. PATIENT'S NAME: WILLIAM LOPEZ [facility] AGE: 55 Y [address] ROOM: [place] [address] LOCATION: GPCU ADMIT DATE: 10/05/2016 Consultation DISCHARGE DATE: FAMILY PHYSICIAN: Sergio Pritchard MD ATTENDING PHYSICIAN: Cheryl Gill MD FRANDY CRUZ/pollo /[id number] d: 10/06/165 t: 10/12/16 1643, CONSULTATION REPORT
--- NOTE | ~2016-10-05 | HP ---
PATIENT'S NAME: WILLIAM LOPEZ [facility] AGE: 55 Y [address] ROOM: [place] [address] LOCATION: GPCU ADMIT DATE: 10/05/2016 History & Physical DISCHARGE DATE: FAMILY PHYSICIAN: Sergio Pritchard MD ATTENDING PHYSICIAN: Cheryl Gill DATE OF SERVICE: CHIEF COMPLAINT: Dyspnea. HISTORY OF PRESENT ILLNESS: The patient is a 55-year-old male, whose primary physician is Dr. Sergio Pritchard. He presented to the emergency room with complaints of dyspnea. He told the ER physician the symptoms have been worsening for the last 2 to 3 days, but he told me the symptoms just started today. He reported a dry cough to the emergency room physician, but to me he denied any cough. Denies chest pain. Denies any abdominal pain, changes with his bowels or bladder. He was previously admitted in July for workup of chest pain, had a negative stress test and an echocardiogram showing an ejection fraction of 60% with normal wall motion, moderate LVH except for the septum which revealed severe RUSTY without evidence of outflow tract obstruction. According to the clinic chart, he was following with Dr. Jackson, his supervisor burling and joining. REVIEW OF SYSTEMS: He denies any fevers or chills. Denies any chest pain. Reports dyspnea. To me, he denies any cough. Denies any abdominal pain, nausea, vomiting, diarrhea, or constipation. Denies any changes to his bladder function. Denies any new rashes. PAST MEDICAL HISTORY: 1. Morbid obesity. 2. CAD of [place] coronary artery with placement of a stent in 2004. 3. Stage 3 chronic kidney disease. 4. History of diabetic foot ulcer. 5. Mixed dyslipidemia with hypertriglyceridemia and low HDL. 6. Type 2 diabetes with diabetic cataract, diabetic nephropathy, diabetic polyneuropathy, severe nonproliferative diabetic retinopathy, stage 3 chronic kidney disease and with atherosclerosis of arteries of extremities and with microalbuminuria. 7. Noncompliant patient. 8. History of osteomyelitis of right lower leg resulting in a below-knee amputation. PAST SURGICAL HISTORY: PATIENT'S NAME: WILLIAM LOPEZ [facility] AGE: 55 Y [address] ROOM: [place] [address] LOCATION: GPCU ADMIT DATE: 10/05/2016 History & Physical DISCHARGE DATE: FAMILY PHYSICIAN: Sergio Pritchard MD ATTENDING PHYSICIAN: Cheryl Gill 1. July 2009, below-knee amputation of the right lower leg due to osteomyelitis. 2. Bilateral cataract surgery in 2004. 3. Foot surgery in 1999 for left 4th and 5th toes amputation. 4. Heart catheterization in 2004 with a stent placed. 5. Stress test in July 2016, negative. MEDICATIONS: 1. Lipitor 40 mg nightly. 2. Norvasc 10 mg daily. 3. Glimepiride 4 mg twice a day. 4. Aspirin 325 mg daily. 5. Carvedilol 25 mg twice a day. 6. Multivitamin daily. 7. Magnesium daily. 8. Prilosec 20 mg daily. 9. Lantus 150 units daily q.a.m. 10. Humalog 15 units at breakfast, 20 units at lunch, and 30 units at supper. ALLERGIES: MORPHINE CAUSES ITCHING. SOCIAL HISTORY: Rare alcohol use. Lives independently. Drinks 5 pops daily. Former smoker, quit in 1984. PHYSICAL EXAMINATION: VITAL SIGNS: On first arrival to the emergency room, his O2 saturation was 85% to 87% on room air. With 2 L per nasal cannula, it improved to 91%; however, while in the ER on 2 L per nasal cannula, his O2 dropped to 88% and required increase to 5 L per nasal cannula to keep it above 90%. Weight 156 kg, height 5 feet 10 inches, temperature 97.8, blood pressure 151/65, pulse 77, respiratory rate 24. GENERAL: He is awake, alert, and oriented. No signs of distress. SKIN: Warm, pink, and dry. HEART: Regular rate and rhythm. Unable to auscultate clearly due to his body habitus. LUNGS: Clear to auscultation throughout. No crackles or wheezing heard. ABDOMEN: Morbidly obese, soft, nondistended, nontender. No masses palpated. EXTREMITIES: Right lower extremity has been amputated below the knee. Left lower extremity has 1+ pitting edema. LABORATORY DATA: EKG: Normal sinus rhythm with first degree AV block. Two-hour followup PATIENT'S NAME: WILLIAM LOPEZ [facility] AGE: 55 Y [address] ROOM: [place] [id number] [facility] AD[facility] DATE: 10/05/2016 History & Physical DISCHARGE DATE: FAMILY PHYSICIAN: Sergio Pritchard MD ATTENDING PHYSICIAN: Cheryl Gill cardiac enzymes: CPK 71, CK-MB 1.5, troponin less than 0.04. Sodium 138, potassium 5.5, chloride 107, bicarb 23, BUN 35, creatinine 1.8, GFR 40, magnesium 1.8. Initial cardiac enzymes: CPK 73, CK-MB 2.0, troponin less than 0.04. ProBNP elevated at 288. White count 10.8, hemoglobin 10.0, platelets 188. PTT 31, PT 10.9, INR 1.04. D-dimer was elevated at 0.68. V/Q scan showed low probability. ABG showed a pH of 7.36 with pCO2 of 42, pO2 of 54. ASSESSMENT AND PLAN: A 55-year-old morbidly obese gentleman with known coronary artery disease, congestive heart failure, chronic obstructive pulmonary disease, and type 2 diabetes with multiple complications. Report of dyspnea, onset somewhere between today and the last 2 to 3 days. To me, he denies a cough. Evidence of bilateral pleural effusion on chest x-ray. D-dimer was elevated, but a V/Q scan done and showed low probability. Doppler of lower extremities was negative for deep vein thrombosis. We will diurese using Lasix 60 mg IV twice daily today. Daily weights. Accurate I's and O's. We will decide further diuresis after re-evaluation tomorrow. Because of his history of coronary artery disease and congestive heart failure, we will consult Cardiology as well. We will continue with his home medications with the exception of his mealtime Humalog. We will instead replace that with a sliding scale Humalog. We will have him on a diabetic, cardiac, no salt added diet. He does have sleep apnea. We will continue with his home CPAP here. I suspect a component of his hypoxia is also due to his morbid obesity as he likely has obesity hypoventilation syndrome. I did check a TSH as well, as he had an elevated TSH when it was last checked at the clinic in 2016. TSH is again elevated at 4.990. We will add a free T4 on with his morning labs. We will likely need his Synthroid dose increased. He also has hyperkalemia with initial potassium of 5.5 at 11:00 today and on recheck tonight 5.8. We will recheck in the morning. If it goes above 6.0, we will need to consider treatment. MD LULU HUNTER/pollo /[id number] D: [id number] T: [id number] HISTORY & PHYSICAL
--- NOTE | ~2016-10-05 | DS ---
PATIENT'S NAME: WILLIAM LOPEZ [facility] AGE: 55 Y [address] ROOM: [address] [place], [place] [address] LOCATION: GPCU ADMIT DATE: 10/05/2016 Discharge Summary DISCHARGE DATE: 10/08/2016 FAMILY PHYSICIAN: Lizeth Pritchard MD ATTENDING PHYSICIAN: Cheryl Gill FINAL DIAGNOSES: 1. Acute on chronic heart failure with preserved ejection fraction. 2. Acute respiratory failure secondary to acute on chronic heart failure with preserved ejection fraction. 3. History of coronary artery disease, status post stent. 4. Type 2 diabetes mellitus, which is insulin-dependent, poorly controlled as an outpatient. 5. Chronic kidney disease, stage III. 6. Obstructive sleep apnea. 7. Morbid obesity. 8. Hyperlipidemia. 9. History of diabetic foot ulcer. PRINCIPLE PROCEDURES: None. REASON FOR HOSPITALIZATION: This is a 55-year-old male, who has a history of heart failure, who presents to the emergency room with shortness of breath. It had been worsening over the last 2 to 3 days prior to admit. He was found to have acute on chronic heart failure with preserved ejection fraction. His last echo showed an EF of 60%. Please see dictated H and P for full details by Dr. Gill on 10/05/2016. HOSPITAL COURSE: The patient was admitted and had IV diuresis with Lasix. He eventually switched over to Lasix drip per the request of Dr. Jackson. Dr. Jackson followed him during the hospitalization. He did have a bump in his creatinine from a baseline of 1.6 to 1.7 up to 2.0. It was down to 1.9 at the time of discharge. He was back to his dry weight, off oxygen, and feeling much better from a shortness of breath standpoint, and it was felt that his heart failure was much improved. Because of his increase in creatinine, Cardiology did not want to do a heart catheterization at this point. On the morning of the , he had been switched over to an oral diuretic and was feeling much better and deemed ready for discharge. DISCHARGE INSTRUCTIONS: Follow up with me in one week and Dr. Jackson in 2 weeks. DISCHARGE MEDICATIONS: His medications include; 1. Amlodipine 10 mg one a day. 2. Benazepril 40 mg one a day. PATIENT'S NAME: WILLIAM LOPEZ [facility] AGE: 55 Y [address] ROOM: [facility] [place] [place] [address] LOCATION: GPCU ADMIT DATE: 10/05/2016 Discharge Summary DISCHARGE DATE: 10/08/2016 FAMILY PHYSICIAN: Lizeth Pritchard MD ATTENDING PHYSICIAN: Cheryl Gill 3. Aspirin 325 one a day. 4. Lipitor 40 mg one p.o. at bedtime. 5. Calcium plus vitamin D one a day. 6. Magnesium 250 mg one a day. 7. Carvedilol 25 mg b.i.d. 8. Amaryl 4 mg b.i.d. 9. Insulin, he is on 15 units in the morning, 20 units at lunch, and 30 units at supper. 10. He is also on Lantus 150 units once a day. 11. Ferrous sulfate 325 b.i.d. 12. Levothyroxine 0.175 one a day. 13. Multivitamin one a day. 14. Prilosec 20 mg one a day. 15. Demadex 20 mg b.i.d. 16. Metformin 1000 mg b.i.d. 17. Tylenol p.r.n. He will call or return if he has further problems or concerns. He voiced understanding of that plan. LIZETH PRITCHARD MD TAB/modl /[id number] d: 10/09/16 0251 t: 11/03/16 0737, DISCHARGE SUMMARY
--- NOTE | ~2016-10-05 | ER ---
PATIENT'S NAME: WILLIAM LOPEZ [facility] AGE: 55 Y [address] ROOM: [place] [address] LOCATION: GPCU ADMIT DATE: 10/05/2016 ER/Outpatient Report DISCHARGE DATE: FAMILY PHYSICIAN: Sergio Pritchard MD ATTENDING PHYSICIAN: Cheryl Gill Time of Arrival: 1043 hours. Time of Evaluation: 1049 hours. CHIEF COMPLAINT: Shortness of breath. HISTORY OF PRESENT ILLNESS: The patient is a 55-year-old male, who presents to the emergency department today with a chief complaint of shortness of breath. He reports this started about 2 to 3 days prior to arrival. It has progressively worsened. He has had a dry cough. He states he is having shortness of breath with minimal activity. He does report some wheezing. No chest pain. Denies any fevers or chills. No nausea or vomiting. No diarrhea or constipation. PAST MEDICAL HISTORY: Insulin-dependent diabetes mellitus, COPD, obesity, obstructive sleep apnea, history of DVT, and coronary artery disease. PAST SURGICAL HISTORY: Heart stent x1 and right foeat-kff-qwck amputation. SOCIAL HISTORY: The patient smokes a pack and half for 5 years, quit 25 years ago. Drinks alcohol rarely. Denies any illicit drug use. ALLERGIES: MORPHINE, WHICH CAUSES ITCHING. MEDICATIONS: Please see list. PRIMARY CARE DOCTOR: Sergio Pritchard M.D. REVIEW OF SYSTEMS: All systems are reviewed by myself and are negative with the exception of those discussed in the HPI and past medical history. PHYSICAL EXAMINATION: PATIENT'S NAME: WILLIAM LOPEZ [facility] AGE: 55 Y [address] ROOM: [place] [address] LOCATION: GPCU ADMIT DATE: 10/05/2016 ER/Outpatient Report DISCHARGE DATE: FAMILY PHYSICIAN: Sergio Pritchard MD ATTENDING PHYSICIAN: Cheryl Gill VITAL SIGNS: Weight 156 kilos, blood pressure 151/65, pulse 77, respiratory rate 24, temperature 97.8, and oxygen saturation 88% to 95% on room air. GENERAL: The patient is a 55-year-old male, who is obese, appears in moderate respiratory distress. HEENT: Normocephalic and atraumatic. Pupils are equal, round, and reactive to light. Mucous membranes are moist. NECK: Supple. There is no nuchal rigidity. CARDIOVASCULAR: Regular rate and rhythm. No murmurs, rubs, or gallops. LUNGS: Lungs with fine crackles noted at the bases. No rales or rhonchi. ABDOMEN: Soft, nontender, and nondistended. No rebound, rigidity, or guarding. MUSCULOSKELETAL: The patient moves all 4 extremities. SKIN: Warm and dry. There is no rashes or lesions noted. LABORATORY DATA AND X-RAYS: Arterial blood gas; 7.36/42/54/24/negative 1.7. D-dimer is 0.68. CBC unremarkable except for hemoglobin of 10.0 and hematocrit of 32.4, otherwise normal. Coags are normal. ProBNP is 288. CMP: Potassium 5.5, BUN 35, and creatinine 1.8. LFTs are normal. Magnesium is normal. Cardiac enzymes are normal. EKG is obtained, interpreted by myself, shows sinus rhythm with a rate of 78, normal axis, LA interval 263, otherwise normal interval. No ST elevation, ST depression, or T-wave inversions. Two-view chest x-ray does show mild vascular congestion, there is some interstitial edema noted, there are bilateral small pleural effusions. Ultrasound of the bilateral lower extremities revealed no evidence of DVT. Cardiac enzymes are normal. A V/Q scan is low probability for pulmonary embolism. IMPRESSION: 1. Acute hypoxic respiratory failure. 2. Acute exacerbation of congestive heart failure. 3. Chronic obstructive pulmonary disease. 4. Initial visit. EMERGENCY DEPARTMENT COURSE: The patient was brought back to the examination room. Seen and evaluated by myself. IV was established. Laboratory analysis and imaging are obtained as described above. The patient was given 125 mg of Solu-Medrol IV. The patient was given 60 mg of Lasix IV. The patient is requiring 5 L nasal cannula via nares to maintain oxygen saturations 90% to 93%. I have discussed the results with the patient. With the patient's acute hypoxic, he will require admission to the hospital for further evaluation, treatment, and management. I have contacted Dr. Gill, who is on-call for the patient's primary care doctor, does agree to accept the patient for further evaluation, treatment, and management. DISPOSITION: PATIENT'S NAME: TATA LOPEZElizabeth Vargas [facility] AGE: 55 Y [address] ROOM: [address] [address] [facility] AD[facility] DATE: 10/05/2016 ER/Outpatient Report DISCHARGE DATE: FAMILY PHYSICIAN: Sergio Pritchard MD ATTENDING PHYSICIAN: Cheryl Gill The patient was admitted under the care of Dr. Gill in stable condition. DO CHRISTINE KNOTT/suyapal /[id number] d: 10/05/16 2143 t: 10/06/16 0921, OUTPATIENT REPORT
--- NOTE | ~2016-10-05 | ENPV ---
Vascular Lower Extremities DVT Study Procedure Demographics Patient Name WILLIAM LOPEZ Date of Study 10/05/2016 Patient Number [id number] Gender Male Date of 1960 Age 55 Visit Number [id number] Height Accession Number [id number] Weight Room Number G6312 BSA BMI Referring Francheska Steiner MD Interpreting Juan Foley MD Physician Sheila Gan MD Physician Physician Ordering Physician Sheila Gan MD Paper Cutter Operator Ampoule Inspector Dyana Vega [facility], T Conclusions Summary No evidence of deep vein thrombosis or superficial thrombophlebitis in the lower extremities bilaterally . Patient has amputation of right lower extremity. Left calf veins technically difficult to image. Procedure Type of Study: Veins:Lower Extremities DVT Study, Venous Duplex Lower Extremity Bilateral. Indications for Study:Shortness of breath. Appropriate Use Criteria:9 Patient Status:STAT. Study Location:ER. Technical Quality:Limited visualization due to body habitus. - Preliminary reported to:Dr. Sosa. Velocities are measured in cm/s ; Diameters are measured in cm Right Lower Extremities DVT Study Measurements Right 2D and Doppler Measurements + + + + +------+------+ + !Location !Visualized!Compressibility!Thrombosis!Signal!Reflux!Reflux ! ! ! ! ! ! ! !(sec) ! + + + + +------+------+ + !Common !Yes !Yes !None !Phasic! ! ! !Femoral ! ! ! ! ! ! ! + + + + +------+------+ + !Prox !Yes !Yes !None ! ! ! ! !Femoral ! ! ! ! ! ! ! + + + + +------+------+ + Left Lower Extremities DVT Study Measurements Left 2D and Doppler Measurements + + + + +------+------+ + !Location !Visualized!Compressibility!Thrombosis!Signal!Reflux!Reflux ! ! ! ! ! ! ! !(sec) ! + + + + +------+------+ + !GSV Thigh !Yes !Yes !None !Phasic! ! ! + + + + +------+------+ + !Common !Yes !Yes !None !Phasic! ! ! !Femoral ! ! ! ! ! ! ! + + + + +------+------+ + !Prox !Yes !Yes !None !Phasic! ! ! !Femoral ! ! ! ! ! ! ! + + + + +------+------+ + !Mid Femoral!Yes !Yes !None !Phasic! ! ! + + + + +------+------+ + !Dist !Yes !Yes !None !Phasic! ! ! !Femoral ! ! ! ! ! ! ! + + + + +------+------+ + !Popliteal !Yes !Yes !None !Phasic! ! ! + + + + +------+------+ + !Gastroc !Yes !Yes !None ! ! ! ! + + + + +------+------+ + !PTV !Yes !Yes !None ! ! ! ! + + + + +------+------+ + !Peroneal !Yes !Yes !None ! ! ! ! + + + + +------+------+ + Signature dtt: DIO HUDSON: 10/05/16 1247 Physician Self Edit
[~2016-10-05 10:43] MED LIST: ADVIL200 MG PO; AMARYL4 MG PO; ASPIRIN325 MG PO; BENAZEPRIL HCL40 MG PO; CALCIUM + D3 E1 EACH PO; COREG25 MG PO; GLUCOPHAGE1000 MG PO; HUMALOG100 UNIT/1 SUB-Q; LANTUS (IN100 UNIT/M SUB-Q; LEVOTHROID(SY175 MCG PO; LIPITOR40 MG PO; NORVASC10 MG PO; PRILOSEC20 MG PO; THERAGRAN-M1 TAB PO; TYLENOL EXTRA500 MG PO
[2016-10-05 11:21] LABS: BASOPHIL % 0.3 %; EOSINOPHIL # 0.3 K/uL (0.0-0.5); EOSINOPHIL % 3.1 %; HEMATOCRIT 32.4 % (37.0-53.0); IMMATURE GRANULOCYTE # 0.1 K/uL (0.0-0.3); IMMATURE GRANULOCYTE % 0.7 %; LYMPHOCYTE # 1.3 K/uL (0.8-4.0); MCH 24.8 pg (27.0-34.0); MCHC 30.9 gm/dL (32.0-36.5); MCV 80.4 fl (83.0-98.0); MONOCYTE # 0.9 K/uL (0.0-1.0); MONOCYTE % 8.1 %; MPV 8.5 fl (9.4-12.4); NEUTROPHIL # (ANC) 8.2 K/uL (1.4-9.0); NEUTROPHIL % 75.8 %; NRBC % 0 /100WBC (0-0.00); PLATELET COUNT 188 K/uL (150-450); RBC 4.03 M/uL (4.00-6.00); RDW-CV 15.5 % (11.9-14.6); WBC 10.8 K/uL (4.0-11.0)
[2016-10-05 11:37] LABS: INR - (THERAPEUTIC) 1.04 (0.92-1.07); PROTIME 10.9 SECONDS (9.8-11.4); PTT 31 SECONDS (25-32)
[2016-10-05 11:42] LABS: ALBUMIN 2.9 gm/dL (3.5-5.0); ALK PHOS 86 IU/L (33-138); ALT 20 IU/L (12-78); ANION GAP 13.5 (10.0-19.0); AST 13 IU/L (10-40); BLOOD UREA NITROGEN 35 mg/dL (6-24); CALCIUM 8.5 mg/dL (8.5-10.5); CHLORIDE 107 mMol/L (96-110); CO2 23 mMol/L (22-32); CPK 73 IU/L (35-332); CREATININE 1.8 mg/dL (0.6-1.3); ESTIMATED GFR (MDRD EQUATION) 40; MAGNESIUM 1.8 mg/dL (1.8-2.6); POTASSIUM 5.5 mMol/L (3.7-5.1); SODIUM 138 mMol/L (135-145); TOTAL BILIRUBIN 0.6 mg/dL (0.0-1.5); TOTAL PROTEIN 6.9 g/dL (6.0-8.4)
[2016-10-05 11:54] LABS: BICARBONATE 23.7 mmol/L (18.0-23.0); PCO2 42 mmHg (35-45); PO2 54 mmHg (80-90)
[2016-10-05 13:47] LABS: CPK 71 IU/L (35-332)
[2016-10-05] MEDS ORDERED: MAGNESIUM250 M1 PO (17:30)
[2016-10-05 18:49] LABS: ANION GAP 11.8 (10.0-19.0); CALCIUM 8.9 mg/dL (8.5-10.5); CREATININE 1.8 mg/dL (0.6-1.3)
[2016-10-05 18:51] LABS: POTASSIUM 5.8 mMol/L (3.7-5.1)
[2016-10-06 04:44] LABS: HEMATOCRIT 32.3 % (37.0-53.0); HEMOGLOBIN 9.9 g/dL (12.0-17.0); IMMATURE GRANULOCYTE # 0.1 K/uL (0.0-0.3); IMMATURE GRANULOCYTE % 1.4 %; LYMPHOCYTE # 0.6 K/uL (0.8-4.0); LYMPHOCYTE % 7.5 %; MCH 24.6 pg (27.0-34.0); MCHC 30.7 gm/dL (32.0-36.5); MCV 80.1 fl (83.0-98.0); MONOCYTE # 0.4 K/uL (0.0-1.0); MONOCYTE % 4.6 %; MPV 8.7 fl (9.4-12.4); NEUTROPHIL % 86.5 %; NRBC % 0 /100WBC (0-0.00); PLATELET COUNT 201 K/uL (150-450); RBC 4.03 M/uL (4.00-6.00); RDW-CV 15.3 % (11.9-14.6); WBC 8.1 K/uL (4.0-11.0)
[2016-10-06 05:09] LABS: ANION GAP 13.5 (10.0-19.0); CALCIUM 8.3 mg/dL (8.5-10.5); CREATININE 1.9 mg/dL (0.6-1.3); POTASSIUM 5.5 mMol/L (3.7-5.1)
[2016-10-07 05:01] LABS: CALCIUM 8.6 mg/dL (8.5-10.5)
[2016-10-07 05:18] LABS: ANION GAP 13.4 (10.0-19.0); POTASSIUM 4.4 mMol/L (3.7-5.1)
[2016-10-08 06:01] LABS: ANION GAP 11.4 (10.0-19.0); CALCIUM 8.8 mg/dL (8.5-10.5); CREATININE 1.9 mg/dL (0.6-1.3); MAGNESIUM 1.9 mg/dL (1.8-2.6); POTASSIUM 4.4 mMol/L (3.7-5.1)
[2016-10-08] MEDS ORDERED: FEOSOL325 MG PO (10:19)
[2016-10-08] MEDS ORDERED: DEMADEX20 M1 PO (10:31)
== END 2016-10-08 13:50 | disposition disaster alternative care site (69) | DRG 291 ==
LOC: GMED 10:43 → GPCU 15:48
PROVIDERS: Emergency Medicine; Family Medicine; ADMIT Family Medicine
DX: I50.33 Acute on chronic diastolic (congestive) heart failure (principal); J96.01 Acute respiratory failure with hypoxia; E66.2 Morbid (severe) obesity with alveolar hypoventilation; I42.2 Other hypertrophic cardiomyopathy; Z68.42 Body mass index [BMI] 45.0-49.9, adult; E11.21 Type 2 diabetes mellitus with diabetic nephropathy; E11.40 Type 2 diabetes mellitus with diabetic neuropathy, unspecified; E11.22 Type 2 diabetes mellitus with diabetic chronic kidney disease; E11.319 Type 2 diabetes mellitus with unspecified diabetic retinopathy without macular edema; G47.33 Obstructive sleep apnea (adult) (pediatric); E78.5 Hyperlipidemia, unspecified; N18.3 Chronic kidney disease, stage 3 (moderate); I25.10 Atherosclerotic heart disease of native coronary artery without angina pectoris; J44.9 Chronic obstructive pulmonary disease, unspecified; G43.909 Migraine, unspecified, not intractable, without status migrainosus; E03.9 Hypothyroidism, unspecified; F41.9 Anxiety disorder, unspecified; F32.9 Major depressive disorder, single episode, unspecified; E87.5 Hyperkalemia; Z79.4 Long term (current) use of insulin; Z95.5 Presence of coronary angioplasty implant and graft; Z91.19 Patient's noncompliance with other medical treatment and regimen; Z89.511 Acquired absence of right leg below knee; Z88.5 Allergy status to narcotic agent
CPT/HCPCS: A9539; A9540; J1650; J1940; J2930; J7040; J7050

== ENCOUNTER → 2016-10-26 | Outpatient (CLI) | payer SELFPAY ==
[~2016-10-26] MED LIST changes: +DEMADEX20 M1 PO; +FEOSOL325 MG PO; +MAGNESIUM250 M1 PO
--- NOTE | ~2016-10-26 | PUL ---
PATIENT'S NAME: WILLIAM LOPEZ [facility] AGE: 55 Y [address] ROOM: [place] [id number] LOCATION: [facility] ADMIT DATE: 10/26/2016 Pulmonary DISCHARGE DATE: FAMILY PHYSICIAN: Sergio Pritchard MD ATTENDING PHYSICIAN: Sergio Pritchard NAME OF PROCEDURE: Sleep Study PROCEDURE DATE: 10/26/2016 TECH: KYLER [place]adarrama TEST #: [facility] – [place]# [id number] TECHNICAL PARAMETERS: The patient was studied using International 10/20 measuring system. While the patient was studied, there was continuous monitoring of EEG (8 leads), EOG (2 leads), EKG (3 leads), submental EMG (3 leads), tibial (4 leads), respiratory inductive plethysmography (RIP) for thoracic and abdominal effort, oral and nasal airflow with a thermocouple and pressure transducer, and oximetry. The county program technician also performed visual and auditory observations noting things like body position, patient's status, breath sounds, artifact, snoring level and patient comments. Continuous sound was monitored using a 2-way speaker system and video monitoring was performed using an infrared camera. Review of the entire study was performed epoch by epoch utilizing a single epoch and multiple epoch capability sleep system. MEDICAL HISTORY: The patient is a 55-year-old overweight man with daytime sleepiness and snoring. This study is done to titrate CPAP for obstructive sleep apnea previously diagnosed. SLEEP STAGE SUMMARY: The patient was studied for 470 minutes of which he slept 450 minutes. He fell asleep in 3 minutes and slept for 96% of the night. Sleep architecture revealed a decline in slow wave and REM sleep. RESPIRATORY SUMMARY: Oxygen saturations ranged from 82-96%. CPAP was initiated at 6 cm and titrated to 14 cm with good control of the respiratory events. EKG SUMMARY: Average heart rate 83 beats per minute. No dysrhythmias were noted. LIMB MOVEMENT SUMMARY: Periodic limb movements were noted with a limb movement index of 37 events per hour. The majority were not associated with arousals and may not be clinically relevant. PATIENT'S NAME: WILLIAM LOPEZ [facility] AGE: 55 Y [address] ROOM: [place] [id number] LOCATION: [facility] ADMIT DATE: 10/26/2016 Pulmonary DISCHARGE DATE: FAMILY PHYSICIAN: Sergio Pritchard MD ATTENDING PHYSICIAN: Sergio Pritchard IMPRESSION: Obstructive sleep apnea responsive to CPAP at 14 cm. PLAN: Patient will receive results from the ordering provider. LAISHA ZAPATA MD [facility]/ /[id number] dtt: 11/26/16 1300 Jenna David E. dtd: 11/04/16 1505
== END | disposition disaster alternative care site (69) ==
LOC: GSLP 10-05 21:00
DX: R07.9 Chest pain, unspecified (principal); J44.9 Chronic obstructive pulmonary disease, unspecified; E11.9 Type 2 diabetes mellitus without complications; E66.01 Morbid (severe) obesity due to excess calories; I12.9 Hypertensive chronic kidney disease with stage 1 through stage 4 chronic kidney disease, or unspecified chronic kidney disease; N18.3 Chronic kidney disease, stage 3 (moderate); I25.10 Atherosclerotic heart disease of native coronary artery without angina pectoris; G47.33 Obstructive sleep apnea (adult) (pediatric)